=== PATIENT | male | born 1950 | race Caucasian/White ===

== ENCOUNTER → 2017-05-14 | Day surgery (SDC) | payer MEDICARE, BC ==
[~2017-05-14] MED LIST: BUPIVACAINE/EPINEPHRINE 0.5% 50 ML VIAL INFIL ONE; BUPIVACAINE/EPINEPHRINE 0.5% PF 30 ML VIAL INFIL ONE; LACTATED RINGER'S 1000 ML INJ 1,000 ML ONE; LIDOCAINE 1%/EPINEPHrine 1:100,000 SOLN 20 ML VIAL ONE; MIDAZOLAM HCL 2 MG/2 ML VIAL ONE; PROPOFOL 100 MG/10 ML INJ IV ONE; SODIUM CHLORIDE 0.9% INJ 10 ML ONE; ceFAZolin INJ 1,000 MG VIAL ONE
--- NOTE | 2017-05-14 12:18 | TN ---
cc: SUZETTE PERRIN M.D. DATE OF SURGERY 05/14/2017 PREOPERATIVE DIAGNOSIS Inflamed sebaceous cyst left posterior neck 3 cm. POSTOPERATIVE DIAGNOSIS Inflamed sebaceous cyst left posterior neck 3 cm. PROCEDURE 5 x 3 cm elliptical incision to remove inflamed sebaceous cyst previously drained. ANESTHESIA TIVA with local SURGEON Dr. Perrin INDICATIONS This is a pleasant 67-year-old gentleman who had a swollen tender area in the posterior neck consistent with an inflamed sebaceous cyst. We had I&D in the office about two weeks ago, it has progressed to improvement and plans were made for excision of the remaining cyst to prevent recurrence. PROCEDURE The patient taken to the operating room, placed in the supine position. After anesthesia, he was placed in the right lateral decubitus position. The mass was previously marked. We make an elliptical incision measuring 3 x 5 cm. This mass was excised to surrounding tissue that appeared fairly normal. We then irrigated copiously and closed the elliptical incision with a interrupted nylon suture and mattress type suture. Local was applied. The patient tolerated the procedure well. He had no immediate postop complications. MD YOAV Rojo/VEE /12:06 PM /12:11 PM
== END | disposition home or self-care (01) ==
LOC: ESDC 10:14
PROVIDERS: ATTEND Surgery
DX: L72.3 Sebaceous cyst (principal)
CPT/HCPCS: 00300; 11423; 88304; J0690; J2250; J3010; J7120